=== PATIENT | female | born 1955 | race Caucasian/White ===

== ENCOUNTER 2018-11-18 09:13 | Day surgery (SDC) | payer BC ==
[~2018-11-18] VITALS: Ht 154.9 cm; Wt 93.2 kg
[~2018-11-18 09:13] MED LIST: ALEN40TA2 PO; ASPI-535 PO; FAMO20TA18 PO; GLIM4TAB PO; INSU100I33 SC; LANSOPRAZOLE; LIRA0.6P SQ; LOSA100T15 PO; METO-319 PO; MTF1000T PO
[2018-11-18 10:24] VITALS: Ht 154.9 cm; Wt 93.2 kg
[2018-11-18 10:34] VITALS: BP 141/72; PULSE 89; RESP 20
--- NOTE | 2018-11-18 10:45 | PREAC ---
Date/Time of Note Date/Time of Note DATE: 11/18/18 TIME: 10:43 Anesthesia Eval and Record Evaluation Time Pre-Procedure Interview DATE: 11/18/18 TIME: 10:43 Age 63 Sex female NPO: 8 hrs Preoperative diagnosis Screening Planned procedure Colonoscopy Past Medical History Past Medical History: Includes Cardio: HTN, Dyslipidemia Endo: Diabetes Surgery & Anesthesia Issues No known issue Meds Anticoagulation: No Beta Lulu within 24 hr: No Reason Beta Lulu not given: Pt. not on B-Lulu Reported Medications Alendronate Sodium* (Alendronate Sodium*) 40 Mg Tablet, 70 MG PO DAILY, #30 TAB 11/18/18 Famotidine* (Famotidine*) 20 Mg Tablet, 20 MG PO DAILY, #30 TAB 11/18/18 Glimepiride* (Glimepiride*) 4 Mg Tablet, 4 MG PO WITH BREAKFAST DINNE, TAB 11/18/18 Metformin* (Glucophage*) 1,000 Mg Tablet, 1000 MG PO DAILY, #30 TAB 11/18/18 [Lansoprazole Daily] No Conflict Check 11/18/18 Liraglutide (Victoza 2-Binu) 0.6 Mg/0.1 Ml Pen.injctr, 3 UNITS SQ DAILY, SYR 11/18/18 Insulin Glargine,Hum.rec.anlog (Basaglar Kwikpen U-100) 100 Unit/1 Ml Insuln.pen, 1.2 UNIT SC, EA 11/18/18 Metoprolol Succinate* (Toprol XL*) 50 Mg Tab.er.24h, 50 MG PO DAILY, #30 TAB 11/18/18 Losartan Potassium* (Losartan Potassium*) 100 Mg Tablet, 100 MG PO DAILY, TAB 11/18/18 Aspirin Ec (Aspir 81) 81 Mg Tablet.dr, 81 MG PO DAILY, #30 TAB 11/18/18 Meds reviewed: Yes Allergies Coded Allergies: No Known Drug Allergies (Verified Allergy, Unknown, 11/18/18) Allergies Reviewed: Yes Labs/Studies Labs Reviewed: Reviewed by anesthesiologist test: N/A Studies: ECG (n/a), CXR (n/a) Pre-procedure Exam Last vitals Vital Signs Date Temp Pulse Resp B/P (MAP) Pulse Ox O2 O2 Flow FiO2 Time Delivery Rate 11/18/18 97.7 89 20 141/72 95 Room Air 10:34 (95) Airway: Adequate mouth opening, Adequate thyromental dist Mallampati: Mallampati II Teeth: Normal Lung: Normal Heart: Normal ASA Physical Status ASA physical status: 3 Emergency: None Planned Anesthetic General/MAC: MAC Planned Pain Management Parenteral pain med Pre-operative Attestations Prior to commencing anesthesia and surgery, the patient was re-evaluated, there was verification of: *The patient's identity *The results of appropriate recent lab work and preoperative vital signs *The above evaluation not changing prior to induction *Anesthetic plan, risk benefits, alternative and complications discussed with patient/family; questions answered; patient/family understands, accepts and wishes to proceed. MAIA BROWNE MD Nov 18, 2018 10:45
[2018-11-18] MEDS ORDERED: PROPOFOL 60 ML ONE (11:16)
--- NOTE | 2018-11-18 11:17 | PAC ---
Date/Time of Note Date/Time of Note DATE: 11/18/18 TIME: 11:16 Post-Anesthesia Notes Post-Anesthesia Note Last documented vital signs Vital Signs Date Temp Pulse Resp B/P (MAP) Pulse Ox O2 O2 Flow FiO2 Time Delivery Rate 11/18/18 97.7 89 20 141/72 95 Room Air 11:14 (95) Activity: WNL Respiratory function: WNL Cardiovascular function: WNL Mental status: Baseline Pain reasonably controlled: Yes Hydration appropriate: Yes Nausea/Vomiting absent: Yes MAIA BROWNE MD Nov 18, 2018 11:17
[2018-11-18 11:45] VITALS: BP 133/76; PULSE 84; RESP 20
== END 2018-11-18 12:17 | disposition home or self-care (01) ==
LOC: GIL 09:13
PROVIDERS: ATTEND Internal Medicine Gastroenterology
DX: Z12.11 Encounter for screening for malignant neoplasm of colon (principal); D12.5 Benign neoplasm of sigmoid colon; D12.3 Benign neoplasm of transverse colon; E11.9 Type 2 diabetes mellitus without complications; I10 Essential (primary) hypertension; E78.5 Hyperlipidemia, unspecified; Z79.82 Long term (current) use of aspirin; Z79.4 Long term (current) use of insulin
CPT/HCPCS: 45385; 82962; 88305; Z7610